=== PATIENT | male | born 1990 | race Caucasian/White ===

== ENCOUNTER 2021-06-26 01:43 | Emergency (ER) | payer OTHER ==
[~2021-06-26] VITALS: Ht 170.2 cm; Wt 74.8 kg
[2021-06-26 01:48] VITALS: BP 136/75
[2021-06-26] MEDS ORDERED: LIDOCAINE MPF 1% 10 MG/ML VIAL INJ ONE ×2 (01:55→02:35)
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
--- NOTE | 2021-06-26 02:10 | NUR ---
PATIENT TAKEN TO RADIOLOGY VIA WHEELCHAIR.
[2021-06-26 03:17] VITALS: BP 131/71
--- NOTE | 2021-06-26 03:17 | NUR ---
Patient discharged with v/s stable. Written and verbal after care instructions given and explained. Patient verbalized understanding. Ambulatory with steady gait. All questions addressed prior to discharge. Advised to follow up with PMD.
== END 2021-06-26 03:17 | disposition home or self-care (01) ==
LOC: MED 01:43
DX: S01.81XA Laceration without foreign body of other part of head, initial encounter (principal); W22.8XXA Striking against or struck by other objects, initial encounter; Y93.89 Activity, other specified; Y92.89 Other specified places as the place of occurrence of the external cause; Y99.8 Other external cause status
CPT/HCPCS: 12004; 70450; 99284; J2001

== ENCOUNTER 2021-07-04 18:26 | Emergency (ER) | payer OTHER ==
[~2021-07-04] VITALS: Ht 172.7 cm; Wt 77.1 kg
[2021-07-04 18:52] VITALS: BP 104/38
--- NOTE | 2021-07-04 20:04 | NUR ---
PT AMBULATED TO ER BED 09 UNASSISTED
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
--- NOTE | 2021-07-04 20:47 | NUR ---
jonel said at bedside.
--- NOTE | 2021-07-04 20:54 | NUR ---
ermd evaluated. no nursing interventions needed.
[2021-07-04 20:56] VITALS: BP 112/68
== END 2021-07-04 20:56 | disposition home or self-care (01) ==
LOC: MED 18:26
DX: S01.01XD Laceration without foreign body of scalp, subsequent encounter (principal); X58.XXXD Exposure to other specified factors, subsequent encounter
CPT/HCPCS: 99281